=== PATIENT | male | born 1985 | race Caucasian/White ===

== ENCOUNTER 2019-03-08 15:43 | Emergency (ER) | payer SELFPAY ==
[~2019-03-08] VITALS: Ht 182.9 cm; Wt 80.7 kg
--- NOTE | 2019-03-08 15:54 | NUR ---
BIB SELF C/O L TESTICULAR PAIN FOR 5 DAYS. ON ATB TREATMENT. TO ER BED 16, HOOKED TO MONITOR, CHANGED TO HOSP [facility], AWAITING MD LEGGETT.
--- NOTE | 2019-03-08 16:10 | NUR ---
CECY FERRERA AT BEDSIDE
[2019-03-08] MEDS ORDERED: KETOROLAC TROMETHAMINE INJ 60 MG/2 ML VIAL IM ONE (16:30)
[2019-03-08] MEDS ORDERED: LORAZEPAM 1 MG TABLET PO ONE (16:30)
[2019-03-08] MEDS ORDERED: LORAZEPAM 0.5 MG TABLET ONE (17:03)
[2019-03-08] MEDS ORDERED: KETOROLAC TROMETHAMINE INJ 30 MG/ML VIAL ONE (17:03)
[2019-03-08 18:32] LABS: APPEARANCE,URINE Clear (CLEAR); BILIRUBIN,URINE Negative (NEGATIVE); BLOOD, URINE Negative Ery/uL (NEGATIVE); COLOR,URINE Yellow (YELLOW); KETONES,URINE Trace (NEGATIVE); LEUKOCYTE ESTERASE ,URINE Negative (NEGATIVE); NITRITE, URINE Negative (NEGATIVE); PH,URINE 6.5 (5.0-8.0); PROTEIN,URINE Negative (NEGATIVE); UGLUCOSE Negative (NEGATIVE); UROBILINOGEN,URINE 0.2 EU/dL (0.2)
--- NOTE | 2019-03-08 19:09 | NUR ---
Patient discharged to home in stable condition. Written and verbal after care instructions given. Patient verbalizes understanding of instruction.
[2019-03-08 19:23] VITALS: BP 142/78
== END 2019-03-08 19:20 | disposition home or self-care (01) ==
LOC: ER 15:48
DX: N50.812 Left testicular pain (principal); Z72.89 Other problems related to lifestyle; Z60.2 Problems related to living alone
CPT/HCPCS: 76870; 81001; 87086; 87491; 87591; 96372; 99284; J1885; 81000-TC

== ENCOUNTER 2020-08-11 15:09 | Emergency (ER) | payer BC, MEDICAID ==
[~2020-08-11] VITALS: Ht 182.9 cm; Wt 81.6 kg
--- NOTE | 2020-08-11 15:29 | NUR ---
BIBS TO ER BED 2. AAOX4. NOT IN RESP DISTRESS, BREATHING EVEN AND UNLABORED. AMBULATORY ON STADY GAIT. CAME IN FOR FEELING OF NUMBNESS DESCRIBED TINGLING ALL OVER HIS BODY WHILE DRIVING. PT VERBALIZES THAT HE FEELS BETTER AND THAT THAT TINGLING HAVE SUBSIDED. NO NEURO DEFICIT NOTED. MADE AWARE. PT ON MONITOR
[2020-08-11 15:47] VITALS: BP 133/85
[2020-08-11 16:14] LABS: CALCIUM, SERUM 9.2 mg/dL (8.5-10.1); CREATININE 1.2 mg/dL (0.6-1.3); POTASSIUM 3.9 mmol/L (3.5-5.1)
== END 2020-08-11 16:35 | disposition home or self-care (01) ==
LOC: ER 15:09
DX: F41.0 Panic disorder [episodic paroxysmal anxiety] (principal); F10.10 Alcohol abuse, uncomplicated; F17.200 Nicotine dependence, unspecified, uncomplicated; Y90.9 Presence of alcohol in blood, level not specified; Z60.2 Problems related to living alone
CPT/HCPCS: 36415; 80048-TC